=== PATIENT | male | born 1975 | race Caucasian/White ===

== ENCOUNTER → 2021-07-14 08:18 | Outpatient (CLI) | payer BC, SELFPAY ==
--- NOTE | ~2021-07-14 | MR_ITS ---
EXAMINATION: MR brain/brain stem wo con EXAM DATE: 07/14/2021 09:06 INDICATION: Vision disturbance, New onset headache. TECHNIQUE: Magnetic resonance imaging (MRI) of the brain/brain stem obtained without contrast. Davieitt al T1, axial diffusion, gradient echo (T2*), T1, T2, FLAIR sequences obtained. There is no prior st udy for comparison. FINDINGS: There are no areas of restricted diffusion to suggest acute infarction. There is no acute hemorrhage seen on the T2*, a hemosiderin sensitive sequence. No intraparenchymal brain mass. The ve ntricles are normal in size. There are no extra-axial collections. Flow voids are seen in the cereb ral arteries on the T2-weighted sequences consistent with their expected patency. The orbits are unr emarkable. Soft tissue is unremarkable. IMPRESSION: 1. Unremarkable brain MRI examination. Reviewed, dictated and finalized at location B.
== END ==
PROVIDERS: PCP Nurse Practitioner Family; Visit Provider Nurse Practitioner Family
DX: H53.9 Unspecified visual disturbance (principal); R51.9 Headache, unspecified; R10.9 Unspecified abdominal pain; E11.9 Type 2 diabetes mellitus without complications
CPT/HCPCS: 70551

== ENCOUNTER → 2022-10-18 11:19 | Outpatient (CLI) | payer BC, SELFPAY ==
--- NOTE | ~2022-10-18 | XR_ITS ---
EXAMINATION: XR foot LT min 3V DATE: 10/18/2022 11:34 INDICATION: Left foot pain TECHNIQUE: Dorsoplantar, lateral, and 2 oblique views of the left foot were obtained. COMPARISON: None. FINDINGS: No fracture, dislocation, or subluxation. The bones, soft tissues, and joint spaces are unr emarkable. No radiopaque foreign body is identified. IMPRESSION: 1. No acute osseous abnormality. Reviewed, dictated and finalized at location L. [employer]
== END ==
PROVIDERS: PCP Pediatrics; Visit Provider Nurse Practitioner Family
DX: S99.922A Unspecified injury of left foot, initial encounter (principal)
CPT/HCPCS: 73630

== ENCOUNTER → 2023-02-13 08:20 | Outpatient (CLI) | payer BC, SELFPAY ==
--- NOTE | ~2023-02-13 | US_ITS ---
EXAMINATION: US abdomen limited DATE: 02/13/2023 08:52 INDICATION: Elevated liver enzymes TECHNIQUE: Multiple grayscale and Doppler ultrasound images of the abdomen were obtained. COMPARISON: None FINDINGS: Visualized portion of the mid abdominal aorta appears normal measuring 2.3 cm in maximal diameter. Th e pancreatic head and body are normal in appearance. The pancreatic tail is not visualized. Liver gipson s normal contour, with a smooth surface. There is increased parenchymal echogenicity and coarsened ec hotexture consistent with diffuse hepatic steatosis. The poor acoustic penetration decreases sensitiv ity for deeper liver lesions. No liver lesion identified. No intrahepatic biliary duct dilation susp ected.The region of the katherine hepatis is obscured by the poor acoustic penetration with the portal ve in and common bile duct unable to be visualized. Liver is not visualized consistent with reported demetrice or cholecystectomy. The right kidney measures 13.8 cm in length with normal cortical echogenicity and no hydronephrosis. IMPRESSION: 1. Diffuse hepatic steatosis without evident intrahepatic biliary ductal dilation. The common bile du ct was unable to be visualized due to the poor acoustic penetration. Reviewed, dictated and finalized at location A. IMPRESSION: 1. Diffuse hepatic steatosis without evident intrahepatic biliary ductal dilati on. The common bile duct was unable to be visualized due to the poor acoustic p enetration.
== END ==
PROVIDERS: PCP Nurse Practitioner Family; Visit Provider Nurse Practitioner Family
DX: E11.40 Type 2 diabetes mellitus with diabetic neuropathy, unspecified (principal); E78.5 Hyperlipidemia, unspecified; L57.0 Actinic keratosis; R74.8 Abnormal levels of other serum enzymes; G43.109 Migraine with aura, not intractable, without status migrainosus; K76.0 Fatty (change of) liver, not elsewhere classified
CPT/HCPCS: 76705